=== PATIENT | female | born 1995 ===

== ENCOUNTER 2018-07-07 18:16 | Emergency (ER) | payer MEDICAID ==
[2018-07-07 18:24] VITALS: BP 108/74; PULSE 78; TEMP 98.2; O2SAT 97
--- NOTE | 2018-07-07 19:59 | C.PDOC ---
History Of Present Illness 23yo female, comes to ER for evaluation of left great toe pain, present for 5 months. Patient states in March when she initially had the pain, she was evaluated in this ER and was instructed to follow up with podiatry but she has not done so. Otherwise, she denies any fever or chills, and offers no additional medical complaints. Time Seen by Provider: 07/07/18 18:52 Chief Complaint (Nursing): Abnormal Skin Integrity History Per: Patient History/Exam Limitations: no limitations Onset/Duration Of Symptoms: Persistent Current Symptoms Are (Timing): Still Present Location Of Injury: Left: Foot (left great toe) Additional History Per: Patient Past Medical History Reviewed: Historical Data, Nursing Documentation, Vital Signs Vital Signs: Last Vital Signs Temp 98.2 F 07/07/18 18:21 Pulse 78 07/07/18 18:21 Resp 20 07/07/18 20:04 BP 108/74 07/07/18 18:21 Pulse Ox 97 07/07/18 20:41 - Medical History PMH: No Chronic Diseases Surgical History: No Surg Hx Family History: States: No Known Family Hx - Social History Hx Alcohol Use: No Hx Substance Use: No - Immunization History Hx Tetanus Toxoid Vaccination: Yes Hx Influenza Vaccination: Yes Hx Pneumococcal Vaccination: Yes Review Of Systems Constitutional: Negative for: Fever, Chills Musculoskeletal: Positive for: Other (left great toe pain) Physical Exam - Physical Exam Appears: Non-toxic, No Acute Distress Extremity: Tenderness (tenderness to lateral aspect of left great toenail, over overgrown skin. no erythema or warmth noted.), Capillary Refill (< 2 seconds), No Deformity, No Swelling Neurological/Psych: Oriented x3 Gait: Steady ED Course And Treatment O2 Sat by Pulse Oximetry: 97 (RA) Pulse Ox Interpretation: Normal Medical Decision Making Medical Decision Making: discussed with podiatry resident She; pt to be discharged on keflex and f/u podiatry clinic on 07/13/18 Disposition Counseled Patient/Family Regarding: Diagnosis, Need For Followup, Rx Given - Disposition Referrals: [facility] [Outside] Disposition: HOME/ ROUTINE Disposition Time: 19:57 Condition: GOOD Additional Instructions: Por favor tome antibiticos segn lo prescrito. Remoje el dedo del pie en agua tibia y marino de [place] varias veces al da. Tylenol para el dolor Llame a la Cl janette a Amor maana para hacer yenny ciara con la clnica de podologa para el pr ximo lunes entre las 12:00 p.m. y las 3 p.m. Please take antibiotics as prescribed. Soak toe in warm water and epsom salt several times a day. Tylenol for pain. Call Clinic at [facility] tomorrow to make an appointment with the podiatry clinic for next Friday between 12 pm and 3 pm. Prescriptions: Acetaminophen [Tylenol 325mg tab] 650 mg PO Q6 #30 tab Cephalexin [cephalexin] 500 mg PO Q6 #28 cap Instructions: Ingrown Toenail (DC) Forms: [facility] (Divehi), Gen Discharge Inst Divehi Print Language: GREENLANDIC - Clinical Impression Clinical Impression: Ingrowing toenail - PA / HOSPITAL MEDICINE DIRECTOR / Resident Statement MD/DO has reviewed & agrees with the documentation as recorded. - Scribe Statement The provider has reviewed the documentation as recorded by the Chris Villareal Provider Attestation: All medical record entries made by the Scribe were at my direction and personally dictated by me. I have reviewed the chart and agree that the record accurately reflects my personal performance of the history, physical exam, medical decision making, and the department course for this patient. I have also personally directed, reviewed, and agree with the discharge instructions and disposition.
[2018-07-07 20:05] VITALS: RESP 20
== END 2018-07-07 20:04 | disposition home or self-care (01) ==
LOC: C.ER 18:16
DX: L60.0 Ingrowing nail (principal)